=== PATIENT | male | born 1995 | race Caucasian/White ===

== ENCOUNTER 2023-05-27 00:20 | Emergency (ER) | payer OTHER ==
[~2023-05-27] VITALS: Ht 172.7 cm; Wt 104.3 kg
[2023-05-27 00:21] VITALS: BP 144/96; PULSE 114; RESP 20; TEMP 97.4; O2SAT 98
[2023-05-27 00:45] VITALS: BP 144/96; PULSE 114; RESP 20; TEMP 97.4; O2SAT 98
== END 2023-05-27 00:45 ==
LOC: MED 00:20
DX: Z02.89 Encounter for other administrative examinations (principal); V89.2XXA Person injured in unspecified motor-vehicle accident, traffic, initial encounter; Y93.89 Activity, other specified; Y92.410 Unspecified street and highway as the place of occurrence of the external cause; Y99.8 Other external cause status
CPT/HCPCS: 99283